=== PATIENT | female | born 1980 | race Caucasian/White ===

== ENCOUNTER 2017-02-25 07:28 | Emergency (ER) | payer BC ==
[2017-02-25 07:40] VITALS: BP 133/94
[2017-02-25] MEDS ORDERED: Metoclopramide 10 MG/2 ML SDV IVPUSH ONE (07:49)
[2017-02-25] MEDS ORDERED: HYDROmorphone 1 MG/ML Syringe IVPUSH ONE (07:49)
[2017-02-25] MEDS ORDERED: Ketorolac 30 MG/ML SDV IVPUSH ONE (07:53)
--- NOTE | 2017-02-25 07:53 | EDM.PDOC ---
ED HPI GENERAL MEDICAL PROBLEM - General Chief Complaint: Chest Pain Stated Complaint: CHEST PAIN Time Seen by Provider: 02/25/17 07:48 Source of Information: Reports: Patient History Limitations: Reports: No Limitations - History of Present Illness INITIAL COMMENTS - FREE TEXT/NARRATIVE: 36-year-old female presents to the ED with diffuse left precordial chest pain which is very strongly pleuritic or sharp and stabbing. She reports there is constant pain but it was well gets much worse in terms of sharp stabbing. It is felt mostly throughout the left precordium and up underneath her left breast. Radiates occasionally into her left lateral back. Hurts to take a deep breath. There is no associated cough fever chills. She has a known problem with gastroesophageal reflux disease but it's been pretty well controlled as of late. Not sure if she has a hiatal hernia. Denies any nausea or vomiting. Pain is been coming and going for the last 3 days just much worse throughout all last night. Patient underwent bilateral breast reduction surgery about 2 years ago. She has taken Advil last night for pain relief mostly for headache and it did seem to help the chest pain some degree as well. Bowel function is otherwise normal Onset: Unknown/Unsure (Pain is been coming and going for the last 2-1/2 days. Seems to becoming more intense and more constant over the last 24 hours.) Onset Date: 02/23/17 Duration: Day(s):, Getting Worse, Intermittent, Waxing/Waning Location: Reports: Chest (Left precordial chest.) Quality: Reports: Ache, Sharp (Constant aching pain with intermittent sharp stabbing pleuritic pain.), Stabbing Severity: Severe Improves with: Reports: None (When the pain is sharp and stabbing is tender to 10.) Worsens with: Reports: Breathing, Other, Movement (Coughing certain movements make it worse) Context: Denies: Activity, Exercise, Lifting, Sick Contact, Trauma, Other Associated Symptoms: Reports: Chest Pain. Denies: No Other Symptoms, Confusion , Cough, cough w sputum, Diaphoresis, Fever/Chills, Headaches, Loss of Appetite , Malaise, Nausea/Vomiting, Rash, Seizure, Shortness of Breath, Syncope Treatments SENIOR TECHNICAL ANALYST: Reports: NSAIDS (Took Motrin last night. Pain headache relief.) Other Treatments SENIOR TECHNICAL ANALYST: ibuprofen Left Chest Pain Score (Numeric/FACES): 9 - Related Data Allergies Allergy/AdvReac Type Severity Reaction Status Date / Time codeine Allergy Nausea and Verified 02/25/17 07:40 Vomiting hydromorphone HCl Allergy Itching Verified 02/25/17 07:40 [From Dilaudid] morphine Allergy Nausea and Verified 02/25/17 07:40 Vomiting nickel Allergy Rash Verified 02/25/17 07:40 Home Meds: Home Meds Multivitamin [Multivitamins] 1 tab PO DAILY 02/25/17 [History] Past Medical History Gastrointestinal History: Reports: GERD Other Neuro History: BRAIN SURGERY TO REMOVE TUMOR - Past Surgical History GI Surgical History: Reports: Cholecystectomy Female Surgical History: Reports: Breast Reduction ( bilateral breast reduction surgery about 2 years ago.) Musculoskeletal Surgical History: Reports: Other (See Below) Other Musculoskeletal Surgeries/Procedures:: right wrist surgery Social & Family History - Tobacco Use Smoking Status *Q: Never Smoker Second Hand Smoke Exposure: No - Alcohol Use Days Per Week of Alcohol Use: 0 - Recreational Drug Use Recreational Drug Use: No - Living Situation & Occupation Living situation: Reports: Occupation: Employed ED ROS GENERAL - Review of Systems Review Of Systems: See Below Constitutional: Reports: No Symptoms. Denies: Fever, Chills, Malaise, Weakness , Fatigue, Night Sweats, Diaphoresis, Decreased Appetite, Weight Loss HEENT: Reports: No Symptoms Respiratory: Reports: Shortness of Breath, Pleuritic Chest Pain. Denies: Cough , Sputum, Hemoptysis, Other Cardiovascular: Reports: Chest Pain (Left precordial chest.). Denies: Blood Pressure Problem ( See history of present illness), Claudication, Dyspnea on Exertion, Edema, Lightheadedness, Orthopnea, Palpitations Endocrine: Reports: No Symptoms GI/Abdominal: Reports: No Symptoms, Other (Intermittent problems with GERD but it's been pretty well controlled as of late.) : Reports: No Symptoms Musculoskeletal: Reports: No Symptoms Skin: Reports: No Symptoms Neurological: Reports: Headache Psychiatric: Reports: No Symptoms ED EXAM, GENERAL - Physical Exam Exam: See Below Exam Limited By: No Limitations General Appearance: Alert, WD/WN, Moderate Distress Eye Exam: Bilateral Eye: Normal Inspection Throat/Mouth: Normal Inspection, Normal Lips, Normal Oropharynx Head: Atraumatic, Normocephalic Neck: Normal Inspection, Supple, Non-Tender, Full Range of Motion. No: Lymphadenopathy (L), Lymphadenopathy (R) Respiratory/Chest: No Respiratory Distress, No Accessory Muscle Use, Splinting ( Splinting respirations diminished air flow to both lung wei.), Other (Could not reproduce any chest wall pain on examination.). No: Rales, Rhonchi, Wheezing, Retractions Cardiovascular: Normal Peripheral Pulses, Regular Rate, Rhythm, No Edema, No Murmur Peripheral Pulses: 2+: Posterior Tibial (L), Posterior Tibial (R), Dorsalis Pedis (L), Dorsalis Pedis (R) GI/Abdominal: Normal Bowel Sounds, Soft, Non-Tender, No Organomegaly, No Distention, No Abnormal Bruit, No Mass, Pelvis Stable Back Exam: Normal Inspection, Full Range of Motion. No: CVA Tenderness (L), CVA Tenderness (R) Extremities: Normal Inspection, Normal Range of Motion, No Pedal Edema, Normal Capillary Refill Neurological: Alert, Oriented, CN II-XII Intact, Normal Cognition, Normal Gait Psychiatric: Normal Affect, Normal Mood Skin Exam: Warm, Dry, Intact, Normal Color, No Rash EKG INTERPRETATION EKG Date: 02/25/17 Time: 07:55 Rhythm: NSR Rate (Beats/Min): 69 [place]: Normal P-Wave: Present QRS: Normal ST-T: Normal QT: Prolonged Course - Vital Signs Last Recorded V/S: Last Vital Signs Temp 36.3 C 02/25/17 07:37 Pulse 72 02/25/17 07:37 Resp 18 02/25/17 07:37 BP 133/94 H 02/25/17 07:37 Pulse Ox 99 02/25/17 07:37 - Orders/Labs/Meds Labs: Laboratory Tests 02/25/17 02/25/17 02/25/17 Range/Units 07:46 07:46 07:46 WBC 5.10 (3.98-10.04) K/mm3 RBC 4.33 (3.98-5.22) M/mm3 Hgb 12.7 (11.2-15.7) gm/L Hct 37.9 (34.1-44.9) % MCV 87.5 (79.4-94.8) fl MCH 29.3 (25.6-32.2) pg MCHC 33.5 (32.2-35.5) g/dl RDW Std Deviation 40.6 (36.4-46.3) fL Plt Count 264 (182-369) K/mm3 MPV 10.2 (9.4-12.3) fl Neutrophils % (Manual) 50 (40-60) % Band Neutrophils % 0 (0-10) % Lymphocytes % (Manual) 44 H (20-40) % Atypical Lymphs % 0 % Monocytes % (Manual) 4 (2-10) % Eosinophils % (Manual) 2 (0.7-5.8) % Basophils % (Manual) 0 L (0.1-1.2) Platelet Estimate Adequate RBC Morph Comment Normal PT 10.0 (8.0-13.0) SECONDS INR 0.92 D-Dimer, Quantitative (0.19-0.59) mg/L Sodium 140 (136-145) mEq/L Potassium 4.1 (3.5-5.1) mEq/L Chloride 107 (98-107) mEq/L Carbon Dioxide 24 (21-32) mEq/L Anion Gap 13.1 (5-15) BUN 10 (7-18) mg/dL Creatinine 0.7 (0.55-1.02) mg/dL Est Cr Clr Drug Dosing 90.14 mL/min Estimated GFR (MDRD) > 60 (>60) mL/min BUN/Creatinine Ratio 14.3 (14-18) Glucose 110 H (74-106) mg/dL Calcium 8.5 (8.5-10.1) mg/dL Total Bilirubin 0.4 (0.2-1.0) mg/dL AST 20 (15-37) U/L ALT 25 (14-59) U/L Alkaline Phosphatase 67 (46-116) U/L Lactate Dehydrogenase 154 (81-234) U/L CK-MB (CK-2) 2.0 (0-3.6) ng/ml Troponin I < 0.017 (0.00-0.056) ng/mL C-Reactive Protein < 0.2 (<1.0) mg/dL Total Protein 7.3 (6.4-8.2) g/dl Albumin 3.8 (3.4-5.0) g/dl Globulin 3.5 gm/dL Albumin/Globulin Ratio 1.1 (1-2) Lipase (73-393) U/L 02/25/17 02/25/17 Range/Units 07:46 07:46 WBC (3.98-10.04) K/mm3 RBC (3.98-5.22) M/mm3 Hgb (11.2-15.7) gm/L Hct (34.1-44.9) % MCV (79.4-94.8) fl MCH (25.6-32.2) pg MCHC (32.2-35.5) g/dl RDW Std Deviation (36.4-46.3) fL Plt Count (182-369) K/mm3 MPV (9.4-12.3) fl Neutrophils % (Manual) (40-60) % Band Neutrophils % (0-10) % Lymphocytes % (Manual) (20-40) % Atypical Lymphs % % Monocytes % (Manual) (2-10) % Eosinophils % (Manual) (0.7-5.8) % Basophils % (Manual) (0.1-1.2) Platelet Estimate RBC Morph Comment PT (8.0-13.0) SECONDS INR D-Dimer, Quantitative 0.32 (0.19-0.59) mg/L Sodium (136-145) mEq/L Potassium (3.5-5.1) mEq/L Chloride (98-107) mEq/L Carbon Dioxide (21-32) mEq/L Anion Gap (5-15) BUN (7-18) mg/dL Creatinine (0.55-1.02) mg/dL Est Cr Clr Drug Dosing mL/min Estimated GFR (MDRD) (>60) mL/min BUN/Creatinine Ratio (14-18) Glucose (74-106) mg/dL Calcium (8.5-10.1) mg/dL Total Bilirubin (0.2-1.0) mg/dL AST (15-37) U/L ALT (14-59) U/L Alkaline Phosphatase (46-116) U/L Lactate Dehydrogenase (81-234) U/L CK-MB (CK-2) (0-3.6) ng/ml Troponin I (0.00-0.056) ng/mL C-Reactive Protein (<1.0) mg/dL Total Protein (6.4-8.2) g/dl Albumin (3.4-5.0) g/dl Globulin gm/dL Albumin/Globulin Ratio (1-2) Lipase 116 (73-393) U/L Meds: Medications Discontinued Medications Generic Name Dose Route Start Last Admin Trade Name Freq PRN Reason Stop Dose Admin Diatrizoate Meglum/Diatrizoate Sod 120 ml 02/25/17 09:02 02/25/17 09:37 Gastrografin 37% PO 02/25/17 09:03 90 ml ONETIME ONE Administration Hydromorphone HCl 1 mg 02/25/17 07:49 02/25/17 07:56 Dilaudid IVPUSH 02/25/17 07:50 Not Given ONETIME ONE Hyoscyamine 0.125 mg 02/25/17 09:18 02/25/17 09:24 Hyomax-Sl SL 02/25/17 09:19 0.125 mg ONETIME ONE Administration Dextrose/Sodium Chloride 1,000 mls @ 150 mls/hr 02/25/17 08:00 02/25/17 08:03 Dextrose 5%-Normal Saline IV 150 mls/hr ASDIRECTED NICOLE Administration Iopamidol 100 ml 02/25/17 09:02 02/25/17 09:38 Isovue-300 (61%) IVPUSH 02/25/17 09:03 97 ml ONETIME ONE Administration Ketorolac Tromethamine 30 mg 02/25/17 07:53 02/25/17 08:02 Toradol IVPUSH 02/25/17 07:54 30 mg ONETIME ONE Administration Magnesium Citrate 150 ml 02/25/17 09:56 02/25/17 10:11 Citrate Of Magnesia PO 02/25/17 09:57 150 ml ONETIME ONE Administration Metoclopramide HCl 7.5 mg 02/25/17 07:49 02/25/17 08:02 Reglan IVPUSH 02/25/17 07:50 7.5 mg ONETIME ONE Administration Sodium Chloride 10 ml 02/25/17 09:02 02/25/17 09:38 Saline Flush FLUSH 10 ml ONETIME PRN Administration IV FLUSH - Radiology Interpretation Free Text/Narrative:: 36-year-old female attends the ED with diffuse left-sided chest pain that is constant but intermittently colicky. Does not radiate through to her back or neck. Started 2 days ago and is progressively become more constant and intense. Bothered her throughout the night. Strong pleuritic component to the pain at times or spastic type pain. He has known gastroesophageal reflux disorder. No known cardiac history. Examination is essentially normal other than splinting respirations with poor flow to both lungs. There is no associated fever or chills. Is whether she may have a hiatal hernia contributing to her current pain syndrome. ECG is sinus rhythm at 69/m and is essentially normal. Plan 1 view chest x-ray to be done routine labs to be done. Given Toradol 30 mg IV for pain relief with Reglan 7.5 mg IV. She is allergic to most of the intravenous forms of narcotics. - Re-Assessments/Exams Free Text/Narrative Re-Assessment/Exam: 02/25/17 08:12 chest x-ray was within normal limits. ECG is normal. Suspect GI source of pain such as a hiatal hernia. We'll have CT chest abdomen and pelvis carried out with IV and oral contrast. 02/25/17 08:59 Labs revealed a normal white count at 5.10. Differential is 50% neutrophils no bands and 44% lymphocytes. Hemoglobin is 12.7 with hematocrit of 37.9. Platelets 264,000. Coags are normal. D-dimer is normal at 0.32. Sodium is 140 potassium is 4.1. Chloride 107 bicarbonate 24. And a gap is 13.1. BUNs is 10. Creatinine is 0.7 EGFR is greater than 60. Glucose is 110 liver function normal troponin is less than 0.017 C-reactive protein is less than 0.2 CK-MB fraction is 2.0. Lipase 116. Therefore all labs are essentially normal. We'll proceed with CT of the chest and abdomen with oral contrast to see if we can visualize a fixed hiatal hernia that is causing referred pain into her left precordial chest. 02/25/17 09:19 is delay in getting the CT done because it was felt that she needed both bottles of oral contrast. This is not the case and therefore CT can be done at any time since she has already drank one bottle of contrast. Pain is better with the Toradol but not gone. I will try Levsin sublingually to see if this relieves any spasm of the GI tract. 02/25/17 09:56 CT scan of the abdomen chest and pelvis has been performed. CT of the lungs and heart appear to be completely normal. There is a small hiatal hernia but not enough to be causing the degree of pain that she was suffering. I do notice that there is a large amount of stool throughout the entire colon particularly the left upper quadrant pushing up on the left hemidiaphragm which may be causing referred pain into the left joseph-chest. Particular since her pain was sharp and colicky at times. The oral contrast she drank will help cleanse the bowel but I also will give her Citroma 5 ounces by mouth to ensure a good cleanse of the bowel and hopefully relieve her pain. Will follow-up if not markedly improved after bowel cleanse. Departure - Departure Time of Disposition: 09:57 Disposition: Home, Self-Care 01 Condition: Fair Clinical Impression: Non-cardiac chest pain, Constipation by delayed colonic transit Instructions: Constipation, Adult, [id number], Nonspecific Chest Pain, Easy- to-Read Referrals: Deuce Khanna MD [Primary Care Provider] - Forms: ED Department Discharge Additional Instructions: Evaluation the emergent today in regards to development of left upper anterior chest pain which appeared to be strongly pleuritic or sharp and stabbing in nature. Was also a constant component to the pain. It was worsened by deep breathing. Investigations of the heart and lungs proved to be completely normal. There is no evidence of heart related illness and no signs of blood clots within the lungs. Concern was for a possible hiatal hernia stretching the diaphragm causing referred pain up into the chest and therefore CT of the chest abdomen pelvis was carried out. It does reveal a very small hiatal hernia but not enough to cause a degree of pain which were expressing. The only other finding on CT was constipation with a large amount of stool throughout the entire colon but particularly in the left upper quadrant of the abdomen pushing the diaphragm upwards. This may be causing referred pain to the left joseph- chest. Lab work was completely normal. Suggest bowel cleanse with 5 ounces of Citroma this morning taken with 5 ounces of juice of choice. This will usually make the bowels begin to work in 1-2 hours and provide bowel cleanse. Off work today tentatively may be able to return tomorrow. Follow-up with personal physician if still having left-sided chest pain
[2017-02-25] MEDS ORDERED: Dextrose 5%-0.9% NaCl 1,000 ML IV SCH (08:00)
[2017-02-25] MEDS ORDERED: Sodium Chloride 0.9% 10 ML Syringe FLUSH PRN (09:02)
[2017-02-25] MEDS ORDERED: Diatrizoate Meglumine/Diatrizoate Sodium 37% 120 ML Bottle PO ONE (09:02)
[2017-02-25] MEDS ORDERED: Iopamidol 612 MG/ML 100 ML Bottle IVPUSH ONE (09:02)
[2017-02-25] MEDS ORDERED: Hyoscyamine 0.125 MG Tab.SL SL ONE (09:18)
[2017-02-25] MEDS ORDERED: Magnesium Citrate Solution 296 ML Bottle PO ONE (09:56)
--- NOTE | 2017-02-25 11:24 | CT ---
CT chest Technique: Multiple axial sections were obtained from above the dome of the diaphragm inferiorly through the lung bases. Intravenous contrast was utilized. Comparison: No previous chest imaging. Findings: Mediastinum and hilar regions appear within normal limits. No adenopathy is seen. No pericardial thickening is identified. Lungs are clear. No pulmonary nodule or pleural effusions are seen. Bone window settings were reviewed which show no acute osseous abnormality. Impression: 1. No abnormality is identified on CT study of the chest. Diagnostic code #1 CT abdomen and pelvis Technique: Multiple axial sections were obtained from above the dome of the diaphragm inferiorly through the pubic symphysis. Intravenous and oral contrast has been given. Delayed images were obtained through the bladder. Comparison: No prior abdominal or pelvic imaging. Findings: Liver shows no focal parenchymal abnormality. Spleen appears within normal limits. Soft tissue nodule is noted within the medial aspect of the spleen compatible with accessory splenic tissue. Adrenal glands show no nodule. Kidneys show contrast-enhancement without hydronephrosis or mass. Pancreas is within normal limits. Aorta shows no aneurysmal dilatation. No retroperitoneal adenopathy or mesenteric abnormalities are seen. Delayed images shows contrast within the distal ureters and within the bladder. Appendix is seen which appears normal in size. No pelvic mass or adenopathy is seen. No bowel dilatation is seen. No free fluid or inflammatory change is seen within the abdomen or pelvis. Mild increased stool is noted within the colon. Bone window settings were reviewed which appear within normal limits for the patient's age. Impression: 1. Nothing acute is seen on CT study of the abdomen and pelvis. Incidental findings as noted above. Diagnostic code #2
--- NOTE | 2017-02-25 11:24 | CR ---
Chest: Portable view of the chest was obtained. Comparison: No prior chest x-ray is available. Heart size and mediastinum are normal. Lungs are clear. Bony structures are grossly intact. Surgical clips are noted from prior cholecystectomy. Impression: 1. Nothing acute is identified on portable chest x-ray. Diagnostic code #1
== END 2017-02-25 10:16 | disposition home or self-care (01) ==
LOC: JD.ED 07:28
DX: R07.89 Other chest pain (principal); K59.01 Slow transit constipation; K21.9 Gastro-esophageal reflux disease without esophagitis; Z88.5 Allergy status to narcotic agent; Z91.09 Other allergy status, other than to drugs and biological substances; Z88.8 Allergy status to other drugs, medicaments and biological substances
CPT/HCPCS: 36415; 71010; 71260; 74177; 80053; 82553; 83615; 83690; 84484; 85025; 85379; 85610; 86140; 93005; 96361; 96374; 96375; 99285; A9270; J1885; J2765; J7042; J7050; Q9963; Q9967; 93010

== ENCOUNTER 2022-10-10 02:32 | Emergency (ER) | payer BC ==
[2022-10-10] MEDS ORDERED: Aspirin 325 MG Tab.EC PO ONE (02:46)
[2022-10-10 02:56] LABS: BASOPHILS ABSOLUTE AUTO 0.07 K/mm3 (0.01-0.08); BASOPHILS PERCENT AUTO 1.2 % (0.1-1.2); EOSINOPHILS ABSOLUTE AUTO 0.22 K/mm3 (0.04-0.36); EOSINOPHILS PERCENT AUTO 3.6 (0.7-5.8); HEMATOCRIT 38.5 % (34.1-44.9); HEMOGLOBIN 12.8 gm/dl (11.2-15.7); IMMATURE GRAN ABSOLUTE AUTO 0.01 K/mm3 (0.00-0.10); IMMATURE GRAN PERCENT AUTO 0.2 % (<=1.0); LYMPHOCYTES ABSOLUTE AUTO 2.03 K/mm3 (1.18-3.74); LYMPHOCYTES PERCENT AUTO 33.4 % (19.3-51.7); MEAN CORPUSCULAR HEMOGLOBIN 29.2 pg (25.6-32.2); MEAN CORPUSCULAR HGB CONC 33.2 g/dl (32.2-35.5); MEAN CORPUSCULAR VOLUME 87.9 fl (79.4-94.8); MEAN PLATELET VOLUME 10.2 fl (9.4-12.3); MONOCYTES ABSOLUTE AUTO 0.57 K/mm3 (0.24-0.36); MONOCYTES PERCENT AUTO 9.4 % (4.7-12.5); NEUTROPHILS ABSOLUTE AUTO 3.17 K/mm3 (1.56-6.13); NEUTROPHILS PERCENT AUTO 52.2 % (34.0-71.1); PLATELET COUNT,PLT 321 K/mm3 (182-369); RED BLOOD CELL COUNT 4.38 M/mm3 (3.98-5.22); WHITE BLOOD CELL COUNT,WBC 6.07 K/mm3 (3.98-10.04)
[2022-10-10 03:16] LABS: INR 0.94; PROTHROMBIN TIME 10.1 SECONDS (9.7-12.0)
[2022-10-10 03:17] LABS: D-DIMER QUANTITATIVE 0.29 mg/L (0.19-0.50)
[2022-10-10 03:21] LABS: A/G RATIO 1.1 (1-2); ALBUMIN 3.8 g/dl (3.4-5.0); ANION GAP 11.3 (5-15); BILIRUBIN TOTAL 0.2 mg/dL (0.2-1.0); BUN/CREATININE RATIO 18.8 (14-18); CALCIUM 8.7 mg/dL (8.5-10.1); CREATININE 0.8 mg/dL (0.55-1.02); EST CRCL DRUG DOSING (CG) 74.23 mL/min; POTASSIUM,K 3.3 mEq/L (3.5-5.1); PROTEIN TOTAL,TP 7.4 g/dl (6.4-8.2)
[2022-10-10 04:17] VITALS: BP 144/95; PULSE 80
== END 2022-10-10 04:15 | disposition home or self-care (01) ==
LOC: JD.ED 02:32
DX: R07.89 Other chest pain (principal); G43.801 Other migraine, not intractable, with status migrainosus; Z88.5 Allergy status to narcotic agent; Z91.048 Other nonmedicinal substance allergy status
CPT/HCPCS: 36415; 70450; 71045; 80053; 84484; 85025; 85379; 85610; 93005; 99285; A9270; 93010; 99283

== ENCOUNTER 2023-08-17 07:35 | Emergency (ER) | payer BC ==
[2023-08-17] MEDS: Sodium Chloride 0.9% 1,000 ML IV ONE (08:08)
[2023-08-17] MEDS: Sodium Chloride 0.9% 10 ML Syringe FLUSH PRN (08:08)
[2023-08-17] MEDS: Metoclopramide 10 MG/2 ML SDV IVPUSH ONE (08:10)
[2023-08-17] MEDS: Ketorolac 30 MG/ML SDV IVPUSH ONE (08:13)
[2023-08-17] MEDS: diphenhydrAMINE 50 MG/ML SDV IVPUSH ONE (08:15)
[2023-08-17 09:27] VITALS: BP 169/100; PULSE 86
== END 2023-08-17 09:30 | disposition home or self-care (01) ==
LOC: JD.ED 07:35
DX: G43.909 Migraine, unspecified, not intractable, without status migrainosus (principal); K21.9 Gastro-esophageal reflux disease without esophagitis; Z90.49 Acquired absence of other specified parts of digestive tract; Z79.899 Other long term (current) drug therapy; Z88.5 Allergy status to narcotic agent; Z91.048 Other nonmedicinal substance allergy status
CPT/HCPCS: 96361; 96374; 96375; 99283; J1200; J1885; J2765; J3490; J7030; 99284

== ENCOUNTER 2024-04-13 11:16 | Emergency (ER) | payer BC, OTHER ==
[2024-04-13 11:34] VITALS: BP 176/103; PULSE 72
[2024-04-13] MEDS: Acetaminophen/Butalbital/Caffeine 325-50-40 MG Tab PO ONE (12:03)
[2024-04-13] MEDS: Ondansetron 4 MG Tab.DIS PO ONE (12:03)
[2024-04-13] MEDS: Ketorolac 60 MG/2 ML SDV IM ONE (12:04)
== END 2024-04-13 13:05 | disposition home or self-care (01) ==
LOC: JD.ED 11:16
DX: S00.03XA Contusion of scalp, initial encounter (principal); G43.801 Other migraine, not intractable, with status migrainosus; K21.9 Gastro-esophageal reflux disease without esophagitis; Z90.49 Acquired absence of other specified parts of digestive tract; Z88.5 Allergy status to narcotic agent; Z88.8 Allergy status to other drugs, medicaments and biological substances; Z79.899 Other long term (current) drug therapy; W01.198A Fall on same level from slipping, tripping and stumbling with subsequent striking against other object, initial encounter
CPT/HCPCS: 70450; 96372; 99283; A9270; J1885